=== PATIENT | female | born 1970 | race Caucasian/White ===

== ENCOUNTER 2017-12-04 11:50 | Inpatient (IN) | payer OTHER ==
[~2017-12-04] VITALS: Ht 165.1 cm; Wt 105.2 kg
[2017-12-04 14:30] VITALS: BP 137/84
[2017-12-04] MEDS ORDERED: LOPERAMIDE HCL 2 MG CAPSULE PO PRN (15:00)
[2017-12-04] MEDS ORDERED: ONDANSETRON HCL 4 MG TABLET PO PRN (15:00)
[2017-12-04] MEDS ORDERED: MAGNESIUM HYDROXIDE SUSPENSION 30 ML UDCUP PO PRN (15:00)
[2017-12-04] MEDS ORDERED: DOCUSATE SODIUM 283 MG/5 ML MINI-ENEMA PR PRN (15:00)
[2017-12-04 17:16] VITALS: BP 145/94
[2017-12-04] MEDS: OxyCODONE HCL/ACETAMINOPHEN 5-325 MG TABLET PO PRN ×2 (17:32→23:53)
[2017-12-04] MEDS: IPRATROPIUM BROMIDE 0.5 MG/2.5 ML NEB SOLUTION NEB SCH ×2 (19:52→22:43)
[2017-12-04] MEDS: ALBUTEROL SULFATE 2.5 MG/0.5 ML NEB SOLUTION NEB SCH ×2 (19:52→22:43)
[2017-12-04] MEDS: CHLORHEXIDINE GLUCONATE 0.12% 15 ML UDCUP ORAL RINSE PO SCH (21:59)
[2017-12-04] MEDS: LevETIRAcetam 500 MG TABLET PO SCH (21:59)
[2017-12-04] MEDS: POTASSIUM CHLORIDE 20 MEQ ER TABLET PO SCH (21:59)
[2017-12-04] MEDS: FAMOTIDINE 20 MG TABLET PO SCH (21:59)
[2017-12-04 23:53] VITALS: BP 125/77
[2017-12-05] MEDS: MODAFINIL 100 MG TABLET PO SCH (06:18)
[2017-12-05 07:47] LABS: BASOPHILS % (AUTO) 0.2 % (0.0-2.0); EOSINOPHILS % (AUTO) 4.2 % (1.0-6.0); HEMATOCRIT 32.1 % (36-46); HEMOGLOBIN 10.6 g/dL (12.0-16.0); LYMPHOCYTES % (AUTO) 12.4 % (22.0-44.0); MEAN CORPUSCULAR HEMOGLOBIN 26.6 pg (26.0-34.0); MEAN CORPUSCULAR HGB CONC 33.1 G/dL (31.0-37.0); MEAN CORPUSCULAR VOLUME 80 fL (80-100); MONOCYTES # (AUTO) 0.5 K/uL (0.1-1.0); MONOCYTES % (AUTO) 5.8 % (2.0-9.0); NEUTROPHILS # (AUTO) 6.1 K/uL (1.8-7.7); NEUTROPHILS % (AUTO) 77.4 % (40.0-70.0); PLATELET COUNT (AUTO) 397 K/uL (150-450); RED BLOOD CELL COUNT(AUTO) 3.99 MIL/uL (4.00-5.20); RED CELL DISTRIBUTION WIDTH 16.6 % (11.5-14.5)
[2017-12-05] MEDS: MULTIVITAMINS WITH MINERALS, THERAPEUTIC TABLET PO SCH (08:05)
[2017-12-05] MEDS: CHLORHEXIDINE GLUCONATE 0.12% 15 ML UDCUP ORAL RINSE PO SCH ×2 (08:05→20:24)
[2017-12-05] MEDS: LevETIRAcetam 500 MG TABLET PO SCH ×2 (08:05→20:25)
[2017-12-05] MEDS: FAMOTIDINE 20 MG TABLET PO SCH ×2 (08:05→20:24)
[2017-12-05] MEDS: POTASSIUM CHLORIDE 20 MEQ ER TABLET PO SCH ×2 (08:05→20:25)
[2017-12-05] MEDS: FLUoxetine HCL 20 MG CAPSULE PO SCH (08:05)
[2017-12-05 08:10] LABS: CALCIUM, TOTAL 9.5 mg/dL (8.8-10.5); CHLORIDE 101 mmol/L (98-107); CREATININE 0.71 mg/dL (0.60-1.30); GLOMERULAR FILTR. RATE CALC > 60 mL/min (>60); GLUCOSE,RANDOM 109 mg/dL (70-110); POTASSIUM 3.5 mmol/L (3.5-5.1); SODIUM SERUM 137 mmol/L (136-145); UREA NITROGEN, BLOOD 8 mg/dL (7-18)
[2017-12-05 08:13] LABS: ANION GAP 7 mmol/L (8-16); CARBON DIOXIDE 29 mmol/L (22-29)
[2017-12-05 08:38] VITALS: BP 124/77
[2017-12-05] MEDS: OxyCODONE HCL/ACETAMINOPHEN 5-325 MG TABLET PO PRN (09:00)
[2017-12-05] MEDS: ALBUTEROL SULFATE 2.5 MG/0.5 ML NEB SOLUTION NEB SCH ×3 (09:04→19:47)
[2017-12-05] MEDS: IPRATROPIUM BROMIDE 0.5 MG/2.5 ML NEB SOLUTION NEB SCH ×2 (09:04→15:44)
[2017-12-05] MEDS ORDERED: POTASSIUM CHLORIDE 20 MEQ ER TABLET PO ONE (11:00)
[2017-12-05 15:59] LABS: APPEARANCE,URINE CLOUDY (CLEAR); BILIRUBIN,URINE NEGATIVE (NEGATIVE); GLUCOSE, URINE (UA) NEGATIVE (NEGATIVE); KETONES,URINE NEGATIVE (NEGATIVE); LEUKOCYTE ESTERASE ,URINE SMALL (NEGATIVE); NITRATE,URINE NEGATIVE (NEGATIVE); OCCULT BLOOD,URINE TRACE (NEGATIVE); PH,URINE 6.5 (5.0-8.0); PROTEIN,URINE NEGATIVE (NEGATIVE); UROBILINOGEN,URINE 0.2 mg/dL (<=1.0)
[2017-12-05 16:00] VITALS: BP 139/97
[2017-12-05 16:30] LABS: RBC,URINE 0-2 /HPF (0-2)
[2017-12-05] MEDS ORDERED: GABAPENTIN 100 MG CAPSULE PO SCH (16:30)
[2017-12-05 16:31] LABS: AMORPHOUS SEDIMENT,UR Few /LPF (None Seen); BACTERIA,URINE Few /HPF (None Seen); MUCUS,URINE Few LPF (None Seen); SQUAMOUS EPITHELIAL CELL,UR Few /LPF (None Seen)
[2017-12-05] MEDS ORDERED: PNEUMOCOCCAL VACCINE POLYVALENT 0.5 ML VIAL [PPSV23] IM ONE (17:30)
[2017-12-05] MEDS: ACETAMINOPHEN 325 MG TABLET PO PRN (18:31)
[2017-12-05] MEDS ORDERED: GABAPENTIN 300 MG CAPSULE PO SCH (21:00)
[2017-12-06] VITALS: BP 128/87
[2017-12-06] MEDS: IPRATROPIUM BROMIDE 0.5 MG/2.5 ML NEB SOLUTION NEB SCH ×5 (02:00→20:00)
[2017-12-06] MEDS: ALBUTEROL SULFATE 2.5 MG/0.5 ML NEB SOLUTION NEB SCH ×4 (02:00→20:00)
[2017-12-06] MEDS: ACETAMINOPHEN 325 MG TABLET PO PRN (03:09)
[2017-12-06] MEDS: MODAFINIL 100 MG TABLET PO SCH (06:10)
[2017-12-06 08:30] VITALS: BP 128/79
[2017-12-06] MEDS ORDERED: CHOLECALCIFEROL (VIT D3) 1,000 UNITS TABLET PO SCH (09:00)
[2017-12-06] MEDS ORDERED: GABAPENTIN 100 MG CAPSULE PO SCH ×2 (09:00)
[2017-12-06] MEDS: MULTIVITAMINS WITH MINERALS, THERAPEUTIC TABLET PO SCH (09:13)
[2017-12-06] MEDS: FAMOTIDINE 20 MG TABLET PO SCH (09:13)
[2017-12-06] MEDS: LevETIRAcetam 500 MG TABLET PO SCH (09:13)
[2017-12-06] MEDS: POTASSIUM CHLORIDE 20 MEQ ER TABLET PO SCH ×2 (09:13→20:26)
[2017-12-06] MEDS: CHLORHEXIDINE GLUCONATE 0.12% 15 ML UDCUP ORAL RINSE PO SCH ×2 (09:13→20:25)
[2017-12-06] MEDS: FLUoxetine HCL 20 MG CAPSULE PO SCH (09:14)
[2017-12-06] MEDS: OxyCODONE HCL/ACETAMINOPHEN 5-325 MG TABLET PO PRN (10:39)
[2017-12-06] MEDS ORDERED: MAGNESIUM HYDROXIDE SUSPENSION 30 ML UDCUP JT PRN (11:45)
[2017-12-06] MEDS ORDERED: LOPERAMIDE HCL 2 MG/10 ML LIQUID UDCUP JT PRN (12:00)
[2017-12-06] MEDS: CefTRIAXone SODIUM 1 GM in DEXTROSE 5%-WATER 10 ML IV SCH (12:59)
[2017-12-06] MEDS ORDERED: ONDANSETRON HCL 4 MG TABLET JT PRN (15:00)
[2017-12-06 16:41] VITALS: BP 137/79
[2017-12-06] MEDS: ACETAMINOPHEN 650 MG/20.3 ML SOLUTION UDCUP JT PRN (17:26)
[2017-12-06] MEDS: LevETIRAcetam 100 MG/ML 5 ML SOLUTION UDCUP JT SCH (20:25)
[2017-12-06] MEDS: ATORVASTATIN CALCIUM 10 MG TABLET JT SCH (20:25)
[2017-12-06] MEDS: OxyCODONE HCL/ACETAMINOPHEN 5-325 MG TABLET JT PRN (20:26)
[2017-12-06] MEDS: FAMOTIDINE 20 MG TABLET JT SCH (20:26)
[2017-12-06] MEDS ORDERED: ATORVASTATIN CALCIUM 10 MG TABLET PO SCH (21:00)
[2017-12-06] MEDS ORDERED: GABAPENTIN 100 MG CAPSULE JT SCH (21:00)
[2017-12-07] MEDS: 0.9% SODIUM CHLORIDE 10 ML SYRINGE IVP SCH ×4 (00:40→23:30)
[2017-12-07 01:07] VITALS: BP 102/56
[2017-12-07] MEDS: IPRATROPIUM BROMIDE 0.5 MG/2.5 ML NEB SOLUTION NEB SCH ×4 (01:26→20:20)
[2017-12-07] MEDS: ALBUTEROL SULFATE 2.5 MG/0.5 ML NEB SOLUTION NEB SCH ×4 (01:26→20:20)
[2017-12-07] MEDS: MODAFINIL 100 MG TABLET JT SCH (05:42)
[2017-12-07] MEDS: OxyCODONE HCL/ACETAMINOPHEN 5-325 MG TABLET JT PRN ×3 (08:06→18:53)
[2017-12-07] MEDS: FAMOTIDINE 20 MG TABLET JT SCH ×2 (08:06→20:59)
[2017-12-07] MEDS: LevETIRAcetam 100 MG/ML 5 ML SOLUTION UDCUP JT SCH ×2 (08:07→21:00)
[2017-12-07] MEDS: POTASSIUM CHLORIDE 20 MEQ ER TABLET PO SCH ×2 (08:07→21:00)
[2017-12-07] MEDS: MULTIVITAMINS WITH MINERALS, THERAPEUTIC 15 ML UDCUP JT SCH (08:07)
[2017-12-07] MEDS: CHOLECALCIFEROL (VIT D3) 1,000 UNITS TABLET JT SCH (08:07)
[2017-12-07] MEDS: CHLORHEXIDINE GLUCONATE 0.12% 15 ML UDCUP ORAL RINSE PO SCH ×2 (08:07→21:00)
[2017-12-07] MEDS ORDERED: FLUoxetine HCL 20 MG CAPSULE JT SCH (09:00)
[2017-12-07] MEDS: CefTRIAXone SODIUM 1 GM in DEXTROSE 5%-WATER 10 ML IV SCH (10:01)
[2017-12-07 10:39] VITALS: BP 132/82
[2017-12-07] MEDS ORDERED: GuaiFENesin/D-METHORPHAN [SUGAR-FREE] 200-20MG/10 ML SYRUP UDCUP JT PRN (15:15)
[2017-12-07 16:05] VITALS: BP 125/65
[2017-12-07] MEDS: SULFAMETHOX/TRIMETH 800-160 MG/20 ML SUSPENSION ORAL SYRINGE JT SCH (20:59)
[2017-12-07] MEDS: GABAPENTIN 100 MG CAPSULE JT SCH (21:00)
[2017-12-07] MEDS: ATORVASTATIN CALCIUM 10 MG TABLET JT SCH (21:00)
[2017-12-08] VITALS: BP 105/67
[2017-12-08] MEDS: OxyCODONE HCL/ACETAMINOPHEN 5-325 MG TABLET JT PRN (01:31)
[2017-12-08] MEDS: IPRATROPIUM BROMIDE 0.5 MG/2.5 ML NEB SOLUTION NEB SCH ×4 (02:00→20:11)
[2017-12-08] MEDS: ALBUTEROL SULFATE 2.5 MG/0.5 ML NEB SOLUTION NEB SCH ×4 (02:00→20:11)
[2017-12-08] MEDS: MODAFINIL 100 MG TABLET JT SCH (05:57)
[2017-12-08 07:04] VITALS: BP 130/77
[2017-12-08] MEDS: LevETIRAcetam 100 MG/ML 5 ML SOLUTION UDCUP JT SCH ×2 (08:24→21:29)
[2017-12-08] MEDS: SULFAMETHOX/TRIMETH 800-160 MG/20 ML SUSPENSION ORAL SYRINGE JT SCH ×2 (08:24→21:29)
[2017-12-08] MEDS: MULTIVITAMINS WITH MINERALS, THERAPEUTIC 15 ML UDCUP JT SCH (08:24)
[2017-12-08] MEDS: FAMOTIDINE 20 MG TABLET JT SCH ×2 (08:25→21:29)
[2017-12-08] MEDS: POTASSIUM CHLORIDE 20 MEQ ER TABLET PO SCH ×2 (08:25→21:29)
[2017-12-08] MEDS: CHLORHEXIDINE GLUCONATE 0.12% 15 ML UDCUP ORAL RINSE PO SCH ×2 (08:25→21:29)
[2017-12-08] MEDS: DRONABINOL 2.5 MG CAPSULE JT SCH (08:25)
[2017-12-08] MEDS: CHOLECALCIFEROL (VIT D3) 1,000 UNITS TABLET JT SCH (08:25)
[2017-12-08] MEDS: GABAPENTIN 100 MG CAPSULE JT SCH ×2 (08:25→21:30)
[2017-12-08] MEDS: 0.9% SODIUM CHLORIDE 10 ML SYRINGE IVP SCH (08:28)
[2017-12-08] MEDS ORDERED: MIRTAZAPINE 15 MG TABLET PO SCH (09:00)
[2017-12-08] MEDS: ACETAMINOPHEN 650 MG/20.3 ML SOLUTION UDCUP JT PRN (14:14)
[2017-12-08 16:14] VITALS: BP 123/68
[2017-12-08] MEDS: MIRTAZAPINE 15 MG TABLET PO SCH (21:29)
[2017-12-08] MEDS: ATORVASTATIN CALCIUM 10 MG TABLET JT SCH (21:29)
[2017-12-08] MEDS: COLD CREAM, SKIN EMOLLIENT 340 GM JAR TP SCH (21:30)
[2017-12-09] MEDS: IPRATROPIUM BROMIDE 0.5 MG/2.5 ML NEB SOLUTION NEB SCH ×4 (02:00→20:00)
[2017-12-09] MEDS: ALBUTEROL SULFATE 2.5 MG/0.5 ML NEB SOLUTION NEB SCH ×4 (02:00→20:00)
[2017-12-09 04:00] VITALS: BP 114/79
[2017-12-09] MEDS: MODAFINIL 100 MG TABLET JT SCH (05:35)
[2017-12-09 08:19] VITALS: BP 123/77
[2017-12-09] MEDS: CHLORHEXIDINE GLUCONATE 0.12% 15 ML UDCUP ORAL RINSE PO SCH ×2 (08:58→20:38)
[2017-12-09] MEDS: LevETIRAcetam 100 MG/ML 5 ML SOLUTION UDCUP JT SCH ×2 (08:58→20:38)
[2017-12-09] MEDS: DRONABINOL 2.5 MG CAPSULE JT SCH (08:58)
[2017-12-09] MEDS: FAMOTIDINE 20 MG TABLET JT SCH ×2 (08:58→20:38)
[2017-12-09] MEDS: MULTIVITAMINS WITH MINERALS, THERAPEUTIC 15 ML UDCUP JT SCH (08:58)
[2017-12-09] MEDS: GABAPENTIN 100 MG CAPSULE JT SCH ×2 (08:58→20:39)
[2017-12-09] MEDS: CHOLECALCIFEROL (VIT D3) 1,000 UNITS TABLET JT SCH (08:58)
[2017-12-09] MEDS: SULFAMETHOX/TRIMETH 800-160 MG/20 ML SUSPENSION ORAL SYRINGE JT SCH ×2 (08:58→20:58)
[2017-12-09] MEDS: POTASSIUM CHLORIDE 10% 40 MEQ/30 ML LIQUID UDCUP JT SCH ×2 (09:19→20:38)
[2017-12-09] MEDS: OxyCODONE HCL/ACETAMINOPHEN 5-325 MG TABLET JT PRN ×2 (12:25→21:17)
[2017-12-09 15:10] VITALS: BP 138/82
[2017-12-09 16:05] VITALS: BP 138/82
[2017-12-09] MEDS: MIRTAZAPINE 15 MG TABLET PO SCH (20:38)
[2017-12-09] MEDS: ATORVASTATIN CALCIUM 10 MG TABLET JT SCH (20:38)
[2017-12-09] MEDS: COLD CREAM, SKIN EMOLLIENT 340 GM JAR TP SCH (20:39)
[2017-12-10] VITALS: BP 117/79
[2017-12-10] MEDS: IPRATROPIUM BROMIDE 0.5 MG/2.5 ML NEB SOLUTION NEB SCH ×4 (02:00→20:00)
[2017-12-10] MEDS: ALBUTEROL SULFATE 2.5 MG/0.5 ML NEB SOLUTION NEB SCH ×4 (02:00→20:00)
[2017-12-10] MEDS: OxyCODONE HCL/ACETAMINOPHEN 5-325 MG TABLET JT PRN ×3 (02:48→13:36)
[2017-12-10] MEDS: MODAFINIL 100 MG TABLET JT SCH (06:15)
[2017-12-10] MEDS: DRONABINOL 2.5 MG CAPSULE JT SCH (08:32)
[2017-12-10] MEDS: GABAPENTIN 100 MG CAPSULE JT SCH ×2 (08:32→20:29)
[2017-12-10] MEDS: POTASSIUM CHLORIDE 10% 40 MEQ/30 ML LIQUID UDCUP JT SCH ×2 (08:32→20:29)
[2017-12-10] MEDS: MULTIVITAMINS WITH MINERALS, THERAPEUTIC 15 ML UDCUP JT SCH (08:32)
[2017-12-10] MEDS: CHOLECALCIFEROL (VIT D3) 1,000 UNITS TABLET JT SCH (08:33)
[2017-12-10] MEDS: FAMOTIDINE 20 MG TABLET JT SCH ×2 (08:33→20:29)
[2017-12-10] MEDS: CHLORHEXIDINE GLUCONATE 0.12% 15 ML UDCUP ORAL RINSE PO SCH ×2 (08:33→20:29)
[2017-12-10 08:34] VITALS: BP 139/77
[2017-12-10 09:18] LABS: BASOPHILS % (AUTO) 0.4 % (0.0-2.0); HEMATOCRIT 31.9 % (36-46); HEMOGLOBIN 10.4 g/dL (12.0-16.0); LYMPHOCYTES % (AUTO) 17.1 % (22.0-44.0); MEAN CORPUSCULAR HEMOGLOBIN 26.4 pg (26.0-34.0); MEAN CORPUSCULAR HGB CONC 32.7 G/dL (31.0-37.0); MEAN CORPUSCULAR VOLUME 81 fL (80-100); MONOCYTES # (AUTO) 0.4 K/uL (0.1-1.0); MONOCYTES % (AUTO) 7.2 % (2.0-9.0); NEUTROPHILS # (AUTO) 4.2 K/uL (1.8-7.7); NEUTROPHILS % (AUTO) 69.3 % (40.0-70.0); PLATELET COUNT (AUTO) 425 K/uL (150-450); RED BLOOD CELL COUNT(AUTO) 3.95 MIL/uL (4.00-5.20); RED CELL DISTRIBUTION WIDTH 16.7 % (11.5-14.5)
[2017-12-10 09:49] LABS: ANION GAP 6 mmol/L (8-16); CALCIUM, TOTAL 9.2 mg/dL (8.8-10.5); CARBON DIOXIDE 30 mmol/L (22-29); CHLORIDE 103 mmol/L (98-107); CREATININE 0.84 mg/dL (0.60-1.30); GLOMERULAR FILTR. RATE CALC > 60 mL/min (>60); GLUCOSE,RANDOM 122 mg/dL (70-110); POTASSIUM 3.4 mmol/L (3.5-5.1); SODIUM SERUM 139 mmol/L (136-145); UREA NITROGEN, BLOOD 9 mg/dL (7-18)
[2017-12-10] MEDS ORDERED: POTASSIUM CHLORIDE 10% 40 MEQ/30 ML LIQUID UDCUP JT ONE (12:45)
[2017-12-10] MEDS: LevETIRAcetam 100 MG/ML 5 ML SOLUTION UDCUP JT SCH ×2 (12:54→20:29)
[2017-12-10 16:39] VITALS: BP 114/74
[2017-12-10] MEDS: MIRTAZAPINE 15 MG TABLET PO SCH (20:29)
[2017-12-10] MEDS: ATORVASTATIN CALCIUM 10 MG TABLET JT SCH (20:29)
[2017-12-10] MEDS: COLD CREAM, SKIN EMOLLIENT 340 GM JAR TP SCH (20:29)
[2017-12-11 01:52] VITALS: BP 101/58
[2017-12-11] MEDS: ALBUTEROL SULFATE 2.5 MG/0.5 ML NEB SOLUTION NEB SCH ×4 (02:00→20:00)
[2017-12-11] MEDS: IPRATROPIUM BROMIDE 0.5 MG/2.5 ML NEB SOLUTION NEB SCH ×3 (02:00→20:00)
[2017-12-11] MEDS: MODAFINIL 100 MG TABLET JT SCH (05:57)
[2017-12-11 08:03] VITALS: BP 156/94
[2017-12-11] MEDS: POTASSIUM CHLORIDE 10% 40 MEQ/30 ML LIQUID UDCUP JT SCH ×2 (09:27→21:11)
[2017-12-11] MEDS: GABAPENTIN 100 MG CAPSULE JT SCH ×2 (09:28→21:13)
[2017-12-11] MEDS: DRONABINOL 2.5 MG CAPSULE JT SCH (09:28)
[2017-12-11] MEDS: MULTIVITAMINS WITH MINERALS, THERAPEUTIC 15 ML UDCUP JT SCH (09:29)
[2017-12-11] MEDS: LevETIRAcetam 100 MG/ML 5 ML SOLUTION UDCUP JT SCH ×2 (09:29→21:11)
[2017-12-11] MEDS: CHOLECALCIFEROL (VIT D3) 1,000 UNITS TABLET JT SCH (09:29)
[2017-12-11] MEDS: FAMOTIDINE 20 MG TABLET JT SCH ×2 (09:29→21:13)
[2017-12-11] MEDS: CHLORHEXIDINE GLUCONATE 0.12% 15 ML UDCUP ORAL RINSE PO SCH ×2 (09:30→21:11)
[2017-12-11] MEDS: OxyCODONE HCL/ACETAMINOPHEN 5-325 MG TABLET JT PRN ×2 (10:27→22:30)
[2017-12-11] MEDS ORDERED: BACLOFEN 10 MG TABLET PO ONE (13:34)
[2017-12-11] MEDS: ACETAMINOPHEN 650 MG/20.3 ML SOLUTION UDCUP JT PRN (13:58)
[2017-12-11 15:51] VITALS: BP 114/80
[2017-12-11] MEDS: BACLOFEN 10 MG TABLET PO SCH ×2 (16:00→21:12)
[2017-12-11] MEDS: COLD CREAM, SKIN EMOLLIENT 340 GM JAR TP SCH (21:11)
[2017-12-11] MEDS: ATORVASTATIN CALCIUM 10 MG TABLET JT SCH (21:12)
[2017-12-11] MEDS: MIRTAZAPINE 15 MG TABLET PO SCH (21:12)
[2017-12-12] MEDS: ALBUTEROL SULFATE 2.5 MG/0.5 ML NEB SOLUTION NEB SCH ×4 (02:00→20:00)
[2017-12-12] MEDS: IPRATROPIUM BROMIDE 0.5 MG/2.5 ML NEB SOLUTION NEB SCH ×4 (02:00→20:00)
[2017-12-12 03:06] VITALS: BP 113/68
[2017-12-12] MEDS: MODAFINIL 100 MG TABLET JT SCH (05:26)
[2017-12-12 08:01] VITALS: BP 101/68
[2017-12-12] MEDS: POTASSIUM CHLORIDE 10% 40 MEQ/30 ML LIQUID UDCUP JT SCH ×2 (08:32→20:19)
[2017-12-12] MEDS: BACLOFEN 10 MG TABLET PO SCH ×3 (08:32→20:19)
[2017-12-12] MEDS: MULTIVITAMINS WITH MINERALS, THERAPEUTIC 15 ML UDCUP JT SCH (08:32)
[2017-12-12] MEDS: FAMOTIDINE 20 MG TABLET JT SCH ×2 (08:33→20:19)
[2017-12-12] MEDS: LevETIRAcetam 100 MG/ML 5 ML SOLUTION UDCUP JT SCH ×2 (08:33→20:19)
[2017-12-12] MEDS: GABAPENTIN 100 MG CAPSULE JT SCH (08:33)
[2017-12-12] MEDS: CHOLECALCIFEROL (VIT D3) 1,000 UNITS TABLET JT SCH (08:33)
[2017-12-12] MEDS: CHLORHEXIDINE GLUCONATE 0.12% 15 ML UDCUP ORAL RINSE PO SCH ×2 (08:33→20:19)
[2017-12-12] MEDS: DRONABINOL 2.5 MG CAPSULE JT SCH (08:33)
[2017-12-12] MEDS: OxyCODONE HCL/ACETAMINOPHEN 5-325 MG TABLET JT PRN ×2 (08:50→15:13)
[2017-12-12 15:13] VITALS: BP 111/72
[2017-12-12] MEDS: MIRTAZAPINE 15 MG TABLET PO SCH (20:19)
[2017-12-12] MEDS: GABAPENTIN 100 MG CAPSULE PO SCH (20:19)
[2017-12-12] MEDS: ATORVASTATIN CALCIUM 10 MG TABLET JT SCH (20:19)
[2017-12-12] MEDS: COLD CREAM, SKIN EMOLLIENT 340 GM JAR TP SCH (20:20)
[2017-12-13 02:45] VITALS: BP 130/87
[2017-12-13] MEDS: MODAFINIL 100 MG TABLET JT SCH (06:30)
[2017-12-13 07:33] VITALS: BP 123/67
[2017-12-13] MEDS: BACLOFEN 10 MG TABLET PO SCH ×3 (07:33→20:51)
[2017-12-13] MEDS: POTASSIUM CHLORIDE 10% 40 MEQ/30 ML LIQUID UDCUP JT SCH ×2 (07:33→20:51)
[2017-12-13] MEDS: MULTIVITAMINS WITH MINERALS, THERAPEUTIC 15 ML UDCUP JT SCH (07:33)
[2017-12-13] MEDS: LevETIRAcetam 100 MG/ML 5 ML SOLUTION UDCUP JT SCH ×2 (07:33→20:51)
[2017-12-13] MEDS: DRONABINOL 2.5 MG CAPSULE JT SCH (07:33)
[2017-12-13] MEDS: CHLORHEXIDINE GLUCONATE 0.12% 15 ML UDCUP ORAL RINSE PO SCH ×2 (07:33→21:00)
[2017-12-13] MEDS: FAMOTIDINE 20 MG TABLET JT SCH ×2 (07:33→20:51)
[2017-12-13] MEDS: OxyCODONE HCL/ACETAMINOPHEN 5-325 MG TABLET JT PRN ×2 (07:33→12:44)
[2017-12-13] MEDS: CHOLECALCIFEROL (VIT D3) 1,000 UNITS TABLET JT SCH (07:33)
[2017-12-13] MEDS: GABAPENTIN 100 MG CAPSULE PO SCH ×3 (07:35→20:51)
[2017-12-13] MEDS: IPRATROPIUM BROMIDE 0.5 MG/2.5 ML NEB SOLUTION NEB SCH ×3 (08:00→20:00)
[2017-12-13] MEDS: ALBUTEROL SULFATE 2.5 MG/0.5 ML NEB SOLUTION NEB SCH ×2 (08:00→13:59)
[2017-12-13 16:34] VITALS: BP 126/72
[2017-12-13] MEDS: COLD CREAM, SKIN EMOLLIENT 340 GM JAR TP SCH (20:51)
[2017-12-13] MEDS: MIRTAZAPINE 15 MG TABLET PO SCH (20:51)
[2017-12-13] MEDS: ATORVASTATIN CALCIUM 10 MG TABLET JT SCH (20:51)
[2017-12-14] MEDS: MODAFINIL 100 MG TABLET JT SCH (05:37)
[2017-12-14 05:47] VITALS: BP 158/65
[2017-12-14] MEDS: OxyCODONE HCL/ACETAMINOPHEN 5-325 MG TABLET JT PRN (05:47)
[2017-12-14] MEDS: ALBUTEROL SULFATE 2.5 MG/0.5 ML NEB SOLUTION NEB SCH ×3 (08:00→20:05)
[2017-12-14] MEDS: IPRATROPIUM BROMIDE 0.5 MG/2.5 ML NEB SOLUTION NEB SCH ×3 (08:00→20:05)
[2017-12-14] MEDS: LevETIRAcetam 100 MG/ML 5 ML SOLUTION UDCUP JT SCH ×2 (08:45→20:18)
[2017-12-14] MEDS: FAMOTIDINE 20 MG TABLET JT SCH ×2 (08:45→20:16)
[2017-12-14] MEDS: CHOLECALCIFEROL (VIT D3) 1,000 UNITS TABLET JT SCH (08:45)
[2017-12-14] MEDS: CHLORHEXIDINE GLUCONATE 0.12% 15 ML UDCUP ORAL RINSE PO SCH ×2 (08:45→20:18)
[2017-12-14] MEDS: MULTIVITAMINS WITH MINERALS, THERAPEUTIC 15 ML UDCUP JT SCH (08:45)
[2017-12-14] MEDS: GABAPENTIN 100 MG CAPSULE PO SCH ×3 (08:45→20:16)
[2017-12-14] MEDS: DRONABINOL 2.5 MG CAPSULE JT SCH (08:46)
[2017-12-14] MEDS: BACLOFEN 10 MG TABLET PO SCH ×3 (08:46→20:16)
[2017-12-14] MEDS: POTASSIUM CHLORIDE 10% 40 MEQ/30 ML LIQUID UDCUP JT SCH ×2 (08:46→20:51)
[2017-12-14 09:47] VITALS: BP 110/85
[2017-12-14 15:05] VITALS: BP 115/75
[2017-12-14] MEDS: ACETAMINOPHEN 650 MG/20.3 ML SOLUTION UDCUP JT PRN (18:19)
[2017-12-14] MEDS: MIRTAZAPINE 15 MG TABLET PO SCH (20:16)
[2017-12-14] MEDS: SENNA 187 MG TABLET PO SCH (20:16)
[2017-12-14] MEDS: ATORVASTATIN CALCIUM 10 MG TABLET JT SCH (20:16)
[2017-12-14] MEDS: DOCUSATE SODIUM 100 MG CAPSULE PO SCH (20:16)
[2017-12-14] MEDS: COLD CREAM, SKIN EMOLLIENT 340 GM JAR TP SCH (20:17)
[2017-12-14] MEDS ORDERED: DSS100 PO (21:15)
[2017-12-14] MEDS ORDERED: KDUR20 PO (21:20)
[2017-12-14] MEDS ORDERED: ATOR10TA84 PO (21:20)
[2017-12-14] MEDS ORDERED: MIRT15 PO (21:20)
[2017-12-14] MEDS ORDERED: MULT-1239 PO (21:20)
[2017-12-14] MEDS ORDERED: LEVE500T53 PO (21:20)
[2017-12-14] MEDS ORDERED: FAMO20 PO (21:20)
[2017-12-14] MEDS ORDERED: MULT1TAB59 JT (21:20)
[2017-12-14] MEDS ORDERED: VITAD1000 PO (21:20)
[2017-12-14] MEDS ORDERED: GABA-529 PO (21:20)
[2017-12-14] MEDS ORDERED: BACL10TA PO (21:20)
[2017-12-14] MEDS ORDERED: MODA100 PO (21:20)
[2017-12-14] MEDS ORDERED: ONDANSETRON HCL 4 MG TABLET PO PRN (23:00)
[2017-12-15] MEDS ORDERED: LOPERAMIDE HCL 2 MG/10 ML LIQUID UDCUP PO PRN
[2017-12-15] MEDS: ALBUTEROL SULFATE 2.5 MG/0.5 ML NEB SOLUTION NEB SCH ×4 (02:00→20:00)
[2017-12-15] MEDS: IPRATROPIUM BROMIDE 0.5 MG/2.5 ML NEB SOLUTION NEB SCH ×4 (02:00→20:00)
[2017-12-15] MEDS: MODAFINIL 100 MG TABLET JT SCH (05:52)
[2017-12-15] MEDS: OxyCODONE HCL/ACETAMINOPHEN 5-325 MG TABLET JT PRN (05:53)
[2017-12-15 05:54] VITALS: BP 155/89
[2017-12-15] MEDS: DOCUSATE SODIUM 100 MG CAPSULE PO SCH ×2 (07:48→20:21)
[2017-12-15] MEDS: POTASSIUM CHLORIDE 10% 40 MEQ/30 ML LIQUID UDCUP JT SCH ×2 (07:49→20:18)
[2017-12-15] MEDS: CHOLECALCIFEROL (VIT D3) 1,000 UNITS TABLET PO SCH (07:49)
[2017-12-15] MEDS: MULTIVITAMINS WITH MINERALS, THERAPEUTIC TABLET PO SCH (07:49)
[2017-12-15] MEDS: GABAPENTIN 100 MG CAPSULE PO SCH ×3 (07:49→20:19)
[2017-12-15] MEDS: LevETIRAcetam 100 MG/ML 5 ML SOLUTION UDCUP JT SCH ×2 (07:49→20:19)
[2017-12-15] MEDS: FAMOTIDINE 20 MG TABLET JT SCH ×2 (07:49→20:18)
[2017-12-15] MEDS: BACLOFEN 10 MG TABLET PO SCH ×3 (07:49→20:19)
[2017-12-15] MEDS: CHLORHEXIDINE GLUCONATE 0.12% 15 ML UDCUP ORAL RINSE PO SCH ×2 (07:49→20:18)
[2017-12-15 08:40] VITALS: BP 107/82
[2017-12-15] MEDS: ACETAMINOPHEN 650 MG/20.3 ML SOLUTION UDCUP PO PRN (12:55)
[2017-12-15 15:32] VITALS: BP 123/82
[2017-12-15] MEDS: SENNA 187 MG TABLET PO SCH (20:18)
[2017-12-15] MEDS: ATORVASTATIN CALCIUM 10 MG TABLET JT SCH (20:18)
[2017-12-15] MEDS: MIRTAZAPINE 15 MG TABLET PO SCH (20:18)
[2017-12-15] MEDS: COLD CREAM, SKIN EMOLLIENT 340 GM JAR TP SCH (20:22)
[2017-12-16 01:59] VITALS: BP 144/85
[2017-12-16] MEDS: ALBUTEROL SULFATE 2.5 MG/0.5 ML NEB SOLUTION NEB SCH ×2 (02:00→20:00)
[2017-12-16] MEDS: IPRATROPIUM BROMIDE 0.5 MG/2.5 ML NEB SOLUTION NEB SCH ×2 (02:00→20:00)
[2017-12-16] MEDS: MODAFINIL 100 MG TABLET JT SCH (05:54)
[2017-12-16 08:20] VITALS: BP 124/84
[2017-12-16] MEDS: CHLORHEXIDINE GLUCONATE 0.12% 15 ML UDCUP ORAL RINSE PO SCH ×3 (08:53→21:06)
[2017-12-16] MEDS: GABAPENTIN 100 MG CAPSULE PO SCH ×3 (08:53→21:07)
[2017-12-16] MEDS: ACETAMINOPHEN 650 MG/20.3 ML SOLUTION UDCUP PO PRN (08:53)
[2017-12-16] MEDS: POLYETHYLENE GLYCOL 3350 17 GM PACKET PO SCH (08:53)
[2017-12-16] MEDS: POTASSIUM CHLORIDE 10% 40 MEQ/30 ML LIQUID UDCUP JT SCH (08:53)
[2017-12-16] MEDS: LevETIRAcetam 100 MG/ML 5 ML SOLUTION UDCUP JT SCH ×2 (08:53→09:00)
[2017-12-16] MEDS: FAMOTIDINE 20 MG TABLET JT SCH (08:54)
[2017-12-16] MEDS: MULTIVITAMINS WITH MINERALS, THERAPEUTIC TABLET PO SCH ×2 (08:54→09:00)
[2017-12-16] MEDS: DOCUSATE SODIUM 100 MG CAPSULE PO SCH ×3 (08:54→21:07)
[2017-12-16] MEDS: BACLOFEN 10 MG TABLET PO SCH ×3 (08:54→21:07)
[2017-12-16] MEDS: CHOLECALCIFEROL (VIT D3) 1,000 UNITS TABLET PO SCH (08:54)
[2017-12-16 15:32] VITALS: BP 146/90
[2017-12-16 16:00] VITALS: BP 146/90
[2017-12-16] MEDS ORDERED: MAGNESIUM HYDROXIDE SUSPENSION 30 ML UDCUP PO PRN (20:15)
[2017-12-16] MEDS ORDERED: POTASSIUM CHLORIDE 10% 40 MEQ/30 ML LIQUID UDCUP PO SCH (21:00)
[2017-12-16] MEDS ORDERED: LevETIRAcetam 100 MG/ML 5 ML SOLUTION UDCUP PO SCH (21:00)
[2017-12-16] MEDS: FAMOTIDINE 20 MG TABLET PO SCH (21:07)
[2017-12-16] MEDS: SENNA 187 MG TABLET PO SCH (21:07)
[2017-12-16] MEDS: MIRTAZAPINE 15 MG TABLET PO SCH (21:07)
[2017-12-16] MEDS: ATORVASTATIN CALCIUM 10 MG TABLET PO SCH (21:07)
[2017-12-16] MEDS: COLD CREAM, SKIN EMOLLIENT 340 GM JAR TP SCH (21:09)
[2017-12-16] MEDS: LevETIRAcetam 500 MG TABLET PO SCH (21:32)
[2017-12-16] MEDS: POTASSIUM CHLORIDE 20 MEQ ER TABLET PO SCH (21:32)
[2017-12-16] MEDS ORDERED: OxyCODONE HCL/ACETAMINOPHEN 5-325 MG TABLET PO PRN (22:30)
[2017-12-16] MEDS ORDERED: GuaiFENesin/D-METHORPHAN [SUGAR-FREE] 200-20MG/10 ML SYRUP UDCUP PO PRN (23:15)
[2017-12-17 00:30] VITALS: BP 128/94
[2017-12-17] MEDS: ALBUTEROL SULFATE 2.5 MG/0.5 ML NEB SOLUTION NEB SCH ×2 (02:00→08:00)
[2017-12-17] MEDS: IPRATROPIUM BROMIDE 0.5 MG/2.5 ML NEB SOLUTION NEB SCH ×2 (02:00→08:00)
[2017-12-17] MEDS: MODAFINIL 100 MG TABLET PO SCH (06:16)
[2017-12-17 08:30] VITALS: BP 128/84
[2017-12-17] MEDS: CHLORHEXIDINE GLUCONATE 0.12% 15 ML UDCUP ORAL RINSE PO SCH ×2 (09:00→20:51)
[2017-12-17] MEDS: DOCUSATE SODIUM 100 MG CAPSULE PO SCH ×2 (09:19→20:52)
[2017-12-17] MEDS: BACLOFEN 10 MG TABLET PO SCH ×3 (09:19→20:52)
[2017-12-17] MEDS: MULTIVITAMINS WITH MINERALS, THERAPEUTIC TABLET PO SCH (09:19)
[2017-12-17] MEDS: LevETIRAcetam 500 MG TABLET PO SCH ×2 (09:19→20:52)
[2017-12-17] MEDS: POTASSIUM CHLORIDE 20 MEQ ER TABLET PO SCH ×2 (09:19→20:52)
[2017-12-17] MEDS: GABAPENTIN 100 MG CAPSULE PO SCH ×3 (09:19→20:51)
[2017-12-17] MEDS: CHOLECALCIFEROL (VIT D3) 1,000 UNITS TABLET PO SCH (09:19)
[2017-12-17] MEDS: FAMOTIDINE 20 MG TABLET PO SCH ×2 (09:20→20:52)
[2017-12-17] MEDS: POLYETHYLENE GLYCOL 3350 17 GM PACKET PO SCH (09:20)
[2017-12-17] MEDS: ACETAMINOPHEN 650 MG/20.3 ML SOLUTION UDCUP PO PRN (11:53)
[2017-12-17 16:03] VITALS: BP 118/84
[2017-12-17] MEDS: SENNA 187 MG TABLET PO SCH (20:52)
[2017-12-17] MEDS: ATORVASTATIN CALCIUM 10 MG TABLET PO SCH (20:52)
[2017-12-17] MEDS: MIRTAZAPINE 15 MG TABLET PO SCH (20:52)
[2017-12-17] MEDS: COLD CREAM, SKIN EMOLLIENT 340 GM JAR TP SCH (20:53)
[2017-12-18 00:16] VITALS: BP 137/59
[2017-12-18] MEDS: MODAFINIL 100 MG TABLET PO SCH (05:42)
[2017-12-18 07:24] LABS: BASOPHILS % (AUTO) 0.5 % (0.0-2.0); EOSINOPHILS % (AUTO) 6.6 % (1.0-6.0); HEMATOCRIT 31.5 % (36-46); HEMOGLOBIN 10.5 g/dL (12.0-16.0); LYMPHOCYTES # (AUTO) 1.2 K/uL (1.0-4.8); LYMPHOCYTES % (AUTO) 23.9 % (22.0-44.0); MEAN CORPUSCULAR HEMOGLOBIN 26.7 pg (26.0-34.0); MEAN CORPUSCULAR HGB CONC 33.4 G/dL (31.0-37.0); MEAN CORPUSCULAR VOLUME 80 fL (80-100); MONOCYTES # (AUTO) 0.3 K/uL (0.1-1.0); MONOCYTES % (AUTO) 6.4 % (2.0-9.0); NEUTROPHILS # (AUTO) 3.1 K/uL (1.8-7.7); NEUTROPHILS % (AUTO) 62.6 % (40.0-70.0); PLATELET COUNT (AUTO) 359 K/uL (150-450); RED BLOOD CELL COUNT(AUTO) 3.94 MIL/uL (4.00-5.20)
[2017-12-18 07:58] LABS: ANION GAP 5 mmol/L (8-16); CALCIUM, TOTAL 8.7 mg/dL (8.8-10.5); CARBON DIOXIDE 32 mmol/L (22-29); CHLORIDE 106 mmol/L (98-107); CREATININE 0.79 mg/dL (0.60-1.30); GLOMERULAR FILTR. RATE CALC > 60 mL/min (>60); GLUCOSE,RANDOM 96 mg/dL (70-110); POTASSIUM 3.7 mmol/L (3.5-5.1); SODIUM SERUM 143 mmol/L (136-145); UREA NITROGEN, BLOOD 8 mg/dL (7-18)
[2017-12-18 08:10] VITALS: BP 123/84
[2017-12-18] MEDS: CHLORHEXIDINE GLUCONATE 0.12% 15 ML UDCUP ORAL RINSE PO SCH ×2 (08:18→20:58)
[2017-12-18] MEDS: LevETIRAcetam 500 MG TABLET PO SCH ×2 (08:18→20:57)
[2017-12-18] MEDS: POTASSIUM CHLORIDE 20 MEQ ER TABLET PO SCH ×2 (08:18→20:57)
[2017-12-18] MEDS: DOCUSATE SODIUM 100 MG CAPSULE PO SCH ×2 (08:18→20:57)
[2017-12-18] MEDS: GABAPENTIN 100 MG CAPSULE PO SCH ×3 (08:18→20:57)
[2017-12-18] MEDS: POLYETHYLENE GLYCOL 3350 17 GM PACKET PO SCH (08:19)
[2017-12-18] MEDS: BACLOFEN 10 MG TABLET PO SCH ×3 (08:19→20:57)
[2017-12-18] MEDS: CHOLECALCIFEROL (VIT D3) 1,000 UNITS TABLET PO SCH (08:19)
[2017-12-18] MEDS: FAMOTIDINE 20 MG TABLET PO SCH ×2 (08:19→20:57)
[2017-12-18] MEDS: MULTIVITAMINS WITH MINERALS, THERAPEUTIC TABLET PO SCH (08:19)
[2017-12-18 16:04] VITALS: BP 114/75
[2017-12-18] MEDS: MIRTAZAPINE 15 MG TABLET PO SCH (20:57)
[2017-12-18] MEDS: SENNA 187 MG TABLET PO SCH (20:57)
[2017-12-18] MEDS: ATORVASTATIN CALCIUM 10 MG TABLET PO SCH (20:57)
[2017-12-18] MEDS: COLD CREAM, SKIN EMOLLIENT 340 GM JAR TP SCH (20:58)
[2017-12-19] VITALS: BP 107/60
[2017-12-19] MEDS: ACETAMINOPHEN 650 MG/20.3 ML SOLUTION UDCUP PO PRN (04:16)
[2017-12-19] MEDS: MODAFINIL 100 MG TABLET PO SCH (05:51)
[2017-12-19 07:45] VITALS: BP 139/84
[2017-12-19 08:00] VITALS: BP 139/84
[2017-12-19] MEDS: CHLORHEXIDINE GLUCONATE 0.12% 15 ML UDCUP ORAL RINSE PO SCH (09:10)
[2017-12-19] MEDS: DOCUSATE SODIUM 100 MG CAPSULE PO SCH (09:10)
[2017-12-19] MEDS: POLYETHYLENE GLYCOL 3350 17 GM PACKET PO SCH (09:10)
[2017-12-19] MEDS: CHOLECALCIFEROL (VIT D3) 1,000 UNITS TABLET PO SCH (09:11)
[2017-12-19] MEDS: LevETIRAcetam 500 MG TABLET PO SCH (09:11)
[2017-12-19] MEDS: MULTIVITAMINS WITH MINERALS, THERAPEUTIC TABLET PO SCH (09:11)
[2017-12-19] MEDS: GABAPENTIN 100 MG CAPSULE PO SCH (09:11)
[2017-12-19] MEDS: FAMOTIDINE 20 MG TABLET PO SCH (09:11)
[2017-12-19] MEDS: BACLOFEN 10 MG TABLET PO SCH (09:11)
[2017-12-19] MEDS: POTASSIUM CHLORIDE 20 MEQ ER TABLET PO SCH (09:11)
[2017-12-19 12:50] VITALS: BP 138/79
== END 2017-12-19 13:27 | DRG 64 ==
LOC: 2WR 11:50
DX: I60.9 Nontraumatic subarachnoid hemorrhage, unspecified (principal); J96.90 Respiratory failure, unspecified, unspecified whether with hypoxia or hypercapnia; J15.212 Pneumonia due to Methicillin resistant Staphylococcus aureus; I67.1 Cerebral aneurysm, nonruptured; G91.9 Hydrocephalus, unspecified; Z93.0 Tracheostomy status; G81.94 Hemiplegia, unspecified affecting left nondominant side; G90.50 Complex regional pain syndrome I, unspecified; N39.0 Urinary tract infection, site not specified; R41.4 Neurologic neglect syndrome; E66.9 Obesity, unspecified; I10 Essential (primary) hypertension; D63.8 Anemia in other chronic diseases classified elsewhere; E87.6 Hypokalemia; E66.01 Morbid (severe) obesity due to excess calories; I62.9 Nontraumatic intracranial hemorrhage, unspecified; F32.9 Major depressive disorder, single episode, unspecified; G40.909 Epilepsy, unspecified, not intractable, without status epilepticus; E55.9 Vitamin D deficiency, unspecified; E78.00 Pure hypercholesterolemia, unspecified; Z98.2 Presence of cerebrospinal fluid drainage device; I69.20 Unspecified sequelae of other nontraumatic intracranial hemorrhage; Z68.38 Body mass index [BMI] 38.0-38.9, adult; Z88.0 Allergy status to penicillin; Z74.01 Bed confinement status; E78.5 Hyperlipidemia, unspecified; R05 Cough; B96.20 Unspecified Escherichia coli [E. coli] as the cause of diseases classified elsewhere; R13.10 Dysphagia, unspecified; I69.391 Dysphagia following cerebral infarction; R49.0 Dysphonia
CPT/HCPCS: 82306; 87081; 87086; 92507; 92508; 92523; 92526; 93970; 94640; 97110; 97112; 97150; 97163; 97167; 97530; 97535; 99366; J0696; J7060; Q0167